=== PATIENT | male | born 2000 | race Caucasian/White ===

== ENCOUNTER → 2019-07-24 09:18 | Outpatient (CLI) | payer SELFPAY ==
--- NOTE | 2019-07-24 09:40 | MRI_ITS ---
STUDY: MRI LEFT ANKLE WITHOUT CONTRAST REASON FOR EXAM: Ankle locking up, sprain a few years ago. TECHNIQUE: Standardized fat and water weighted pulse sequences were obtained in all 3 orthogonal planes. COMPARISON: None. FINDINGS: Normal subcutis adipose space. There is a very small volume of fluid in the perimalleolar posterior tibialis tendon sheath (inversion recovery sagittal image 5). The posterior tibialis tendon is morphologically normal. Normal flexor digitorum longus tendon. Normal flexor hallucis longus tendon. Normal peroneus longus and brevis tendons. Normal tibialis anterior tendon. Normal extensor hallucis longus tendon. Normal extensor digitorum longus tendons. Normal Achilles tendon and teno-osseous insertion. Normal plantar fascia. Normal plantar calcaneal tubercles. There is atrophy with partial fat replacement of the abductor digiti minimi muscle (T1 sagittal image 16). Normal distal tibiofibular syndesmotic ligamentous complex. Normal lateral ligamentous complex. There is a small cyst in the sinus tarsi (inversion recovery sagittal image 13). Normal deltoid ligamentous complexes. Normal plantar calcaneonavicular (spring) ligament. Normal tibiotalar articulation. Normal talar dome. There is a posterior subtalar joint effusion (inversion recovery sagittal images 16-18). Normal talonavicular articulation. Normal calcaneocuboid articulation. Normal navicular-cuneiform articulations. MRI/Lower Ext Joint Only (Routine) IMPRESSION: Very mild posterior tibialis tenosynovitis. Posterior subtalar joint effusion. Atrophy of the abductor digiti minimi muscle. Small cyst in the sinus tarsi. Electronically Signed: Олег Wilhelm MD at 12:17 EST Tel , Service support ,
== END ==
PROVIDERS: Referring Provider Podiatrist; Visit Provider Podiatrist
DX: S93.402D Sprain of unspecified ligament of left ankle, subsequent encounter (principal)
CPT/HCPCS: 73721